=== PATIENT | male | born 1965 | race Caucasian/White ===

== ENCOUNTER 2023-02-02 11:06 | Emergency (ER) | payer OTHER, MEDICARE, MEDICAID, SELFPAY ==
[2023-02-02] VITALS (10 sets, daily range): BP systolic 123–154; BP diastolic 51–93; PULSE 67–98; RESP 14–18; TEMP 36.7–37.1; O2SAT 94–100; BMI 22.8
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
--- NOTE | 2023-02-02 11:10 | CT_ITS ---
FINAL REPORT CLINICAL HISTORY: trauma, critical injury suspected FINDINGS: Thin section axial CT images of the chest , abdomen and pelvis were obtained with contrast. 3D reformatted images were also obtained. This study was performed with techniques to keep radiation doses as low as reasonably achievable (ALARA). Individualized dose reduction techniques using automated exposure control or adjustment of mA and/or kV according to the patient''s size were employed. There is no evidence of pulmonary embolism. There is no evidence of thoracic aortic aneurysm or dissection. Postoperative changes are seen from gastric pull through procedure. Abnormal soft tissues seen at the right base of the neck measuring up to 4.5 cm. This surrounds the distal brachiocephalic artery and proximal common carotid artery and is most worrisome for neoplasm. A small pericardial effusion is noted. Bilateral scarring is noted. There are nodular opacities in both lungs right greater than left measuring up to 14 mm on the right. Images of the abdomen reveal no evidence of abdominal aortic aneurysm or dissection. The celiac axis and superior mesenteric arteries are normal. The renal arteries are normal. The inferior mesenteric artery is patent. The gallbladder is unremarkable. No abdominal mass or adenopathy is identified. A presumed jejunostomy tube is present. Images of the pelvis reveal normal bilateral iliac arteries. There is no evidence of mass or adenopathy. On the bone window images, mild degenerative changes are noted. No focal lytic or sclerotic lesion is identified. IMPRESSION: No evidence of pulmonary embolism. No evidence of traumatic injury. Abnormal soft tissue at the right base of the neck most worrisome for neoplastic involvement. Bilateral pulmonary nodular opacities worrisome for neoplastic involvement but may also be inflammatory. These could be further evaluated with follow-up chest CT or PET/CT. Authenticated and [facility]
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
--- NOTE | 2023-02-02 11:10 | CT_ITS ---
FINAL REPORT TECHNIQUE: Thin-section axial CT with IV contrast supplemented with multi planar reconstruction under CT angiogram protocol was performed of the head and neck. This study was performed technique to keep radiation doses as low as reasonably achievable, (ALARA). NASCET criteria was utilized during interpretation. CLINICAL HISTORY: trauma, critical injury suspected COMPARISON: None FINDINGS: CTA head: No aneurysm is seen. Major intracranial vessels are patent without significant stenosis. IMPRESSION: No evidence of significant stenosis, aneurysm or major branch occlusion. CTA neck: Aortic arch: Arch shows no significant narrowing. Great vessel origins are widely patent. Right carotid: There is a 4.2 cm soft tissue mass at the right base of the neck most worrisome for neoplasm. This surrounds and narrows the right common carotid artery and distal brachiocephalic artery. Left carotid: No significant stenosis is seen at the cervical common or internal carotid artery. Vertebrals: Right vertebral artery is dominant. No significant stenosis is present. There are postoperative changes of the thoracic inlet. IMPRESSION: Soft tissue mass right base of neck surrounding and narrowing right common carotid artery and distal brachiocephalic artery. Otherwise, no significant stenosis. Reviewed, Interpreted and Dictated by Andrews Blanchard III, MD Transcribed by Jennifer Arzola Authenticated and [facility]
--- NOTE | 2023-02-02 11:10 | CT_ITS ---
FINAL REPORT TECHNIQUE: Axial images of the head were obtained without contrast. Coronal reformatted images were also obtained.This study was performed with techniques to keep radiation doses as low as reasonably achievable (ALARA). Individualized dose reduction techniques using automated exposure control or adjustment of mA and/or kV according to the patient's size were employed. CLINICAL HISTORY: trauma, critical injury suspected COMPARISON: None FINDINGS: There is no evidence of intracranial hemorrhage or mass. The ventricular size is within normal limits. There is no evidence of shift of the midline structures. No abnormal extra axial fluid collection is identified. No skull abnormality is seen on the bone window images. IMPRESSION: No acute intracranial abnormality. Reviewed, Interpreted and Dictated by Andrews Blanchard III, MD Transcribed by Jennifer Arzola Authenticated and [facility]
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
--- NOTE | 2023-02-02 11:25 | PC.NURSE ---
right subclavian port in place upon arrival and already accessed. +blood return and flushes easy. Labs collected from port. Pt denies pain. Site intact, dry, and clean.
--- NOTE | 2023-02-02 11:30 | ECG_ITS ---
APPROVED REPORT Exam: Resting ECG HR:82 bpm ECG Measurements Heart Rate 82 AXES DC 120 P 58 QRSd 89 QRS 71 QT 370 T 53 QTc 408 Conclusion SINUS RHYTHM NORMAL ECG UNCONFIRMED REPORT Electronically signed by : Kole Yates MD 02/03/2023 14:22:26
[2023-02-02 11:31] LABS: Basophils % 0.1 % (0.1-2.0); Eosinophils # 0.1 K/mm3 (0.0-0.4); Eosinophils % 0.3 % (0.1-12.0); Hematocrit 33.3 % (42.0-52.0); Hemoglobin 10.4 g/dL (14.1-18.0); Lymphocytes # 0.6 K/mm3 (0.7-4.5); Lymphocytes % 3.1 % (10-50); Mean Corpuscular HGB Conc 31.2 g/dL (31.8-35.4); Mean Corpuscular Hemoglobin 26.9 pg (27.0-31.2); Mean Corpuscular Volume 86.1 fl (80-94); Mean Platelet Volume 7.2 fl (7.4-10.4); Monocytes # 0.6 K/mm3 (0.1-1.0); Monocytes % 3.4 % (1.7-9.3); Neutrophils # 16.5 K/mm3 (1.8-7.8); Platelet Count 284 K/mm3 (142-424); Red Blood Count 3.87 M/mm3 (4.60-6.20); Red Cell Distribution Width 17.5 % (11.5-17.5); White Blood Count 17.7 K/mm3 (4.8-10.8)
[2023-02-02 11:35] LABS: Chloride 101 mmol/L (98-107); Sodium 134 mmol/L (136-145)
[2023-02-02 11:36] LABS: MANUAL DIFFERENTIAL MANUAL DIFFERENTIAL (MANUAL DIFF); Potassium 3.8 mmoL/L (3.5-5.1)
[2023-02-02 11:38] LABS: Alanine Aminotransferase 26 U/L (12-78); Alkaline Phosphatase 107 U/L (38-126); Anion Gap 8.8 mEq/L (5-15); Aspartate Amino Transferase 37 U/L (17-59); Bilirubin,Total 0.5 mg/dl (0.2-1.3); Blood Urea Nitrogen 15 mg/dl (9-20); Carbon Dioxide 28 mmol/L (22.0-30.0); Creatinine Clearance Estimated 126 mL/min (50-200); Estimated Glomerular Filt Rate 137 ml/min (>60); GFR (African American) 166 ML/MIN (>60); Lipase 36 U/L (23-300)
[2023-02-02 11:39] LABS: Albumin Level 3.3 g/dl (3.5-5.0); Calcium 8.3 mg/dl (8.4-10.2); Globulin 3.2 g/dL (1.3-3.2); Glucose 119 mg/dl (74-100); Total Protein,Serum 6.5 g/dl (6.3-8.2)
--- NOTE | 2023-02-02 11:40 | PC.NURSE ---
CALLED AND SPOKE WITH [facility] ABOUT PT NOT GONNA MAKE IT TO THEIR APPT PER FAMILY REQUEST
--- NOTE | 2023-02-02 11:48 | PC.NURSE ---
Pt to CT
[2023-02-02 11:51] LABS: Troponin I < 0.01 ng/ml (0.00-0.034)
--- NOTE | 2023-02-02 12:02 | PC.NURSE ---
Pt in CT. C/o continued pain, almost unable to tolerate scans. MD notified. VO Morphine 4mg IV.
[2023-02-02 12:08] LABS: Activated Partial Thrombo Time 27.9 seconds (22.8-30.6); INR 1.04 (0.9-1.1); Prothrombin Time 11.2 seconds (10.1-12.5)
[2023-02-02 12:11] LABS: Lymphocytes % 3 % (10-50); Monocytes % 2 % (2-9); Neutrophils % 95 % (42-76); Platelet Estimate Normal; RBC Morphology Normal; Total Cells Counted 100
--- NOTE | 2023-02-02 12:52 | PC.NURSE ---
Pt requesting to ambulate to bathroom. Pt encourage to remain immobile with use of urinal until CT results. Pt aware of risks, pt prefers to ambulated to bathroom. Pt ambulated to bathroom with assist x 1 on standby,
--- NOTE | 2023-02-02 15:11 | PC.NURSE ---
called for fu with radiology for CTA results for pt
--- NOTE | 2023-02-02 15:12 | PC.NURSE ---
fu with radiology for CTA results for pt
--- NOTE | 2023-02-02 15:43 | PC.NURSE ---
Neosporin applied to RFA. Non-adhesive bandage applied. Pt tolerated well.
== END 2023-02-02 15:44 | disposition home or self-care (01) ==
PROVIDERS: Emergency Provider Student in an Organized Health Care Education/Training Program
DX: S20.211A Contusion of right front wall of thorax, initial encounter (principal); Z79.01 Long term (current) use of anticoagulants; Z87.891 Personal history of nicotine dependence; V43.62XA Car passenger injured in collision with other type car in traffic accident, initial encounter
CPT/HCPCS: 70450; 70496; 70498; 71275; 72125; 72128; 72131; 74174; 80053; 83690; 84484; 85007; 85025; 85610; 85730; 93005; 96360; 96361; 96374; 96375; 96376; 99285; J2405; Q9967